=== PATIENT | male | born 1970 | race Asian ===

== ENCOUNTER 2018-09-07 12:22 | Emergency (ER) | payer OTHER | END 2018-09-07 14:15 | disposition home or self-care (01) | LOC: FTE 12:22 | DX: K04.7 Periapical abscess without sinus (principal) | CPT/HCPCS: 99283; Z7502 ==

== ENCOUNTER 2019-04-24 07:50 | Day surgery (SDC) | payer OTHER ==
[2019-04-24 09:13] LABS: ADD MAN DIFF? NO
[2019-04-24 09:18] LABS: WHITE BLOOD COUNT 9.7 10^3/ul (4.8-10.8)
[2019-04-24 09:18] LABS: BASOPHIL # 0.1 10^3/ul (0.0-0.1); BASOPHILS % 0.7 % (0.0-2.0); EOSINOPHILS # 0.7 10^3/ul (0.0-0.5); HEMATOCRIT 43.8 % (42.0-52.0); HEMOGLOBIN 14.3 g/dl (14.0-18.0); LYMPHOCYTES # 3.6 10^3/ul (0.8-2.9); LYMPHOCYTES % 37.2 % (15.0-51.0); MEAN CORPUSCULAR HEMOGLOBIN 27.2 pg (29.0-33.0); MEAN CORPUSCULAR HGB CONC 32.6 g/dl (32.0-37.0); MEAN CORPUSCULAR VOLUME 83.4 fl (82.0-101.0); MEAN PLATELET VOLUME 9.5 fl (7.4-10.4); MONOCYTE # 0.8 10^3/ul (0.3-0.9); MONOCYTES % 8.6 % (0.0-11.0); NEUTROPHIL # 4.5 10^3/ul (1.6-7.5); NEUTROPHILS % 46.3 % (39.0-77.0); PLATELET COUNT 291 10^3/UL (140-415); RED BLOOD COUNT 5.25 10^6/ul (4.70-6.10); RED CELL DISTRIBUTION WIDTH 14.3 % (11.5-14.5)
[2019-04-24 09:37] LABS: INR 1.04; PROTIME 13.7 Sec (11.9-14.9); PT RATIO 1.1
[2019-04-24 09:41] LABS: ALANINE AMINOTRANSFERASE 24 IU/L (13-69); ALBUMIN 4.1 g/dl (3.3-4.9); ALBUMIN/GLOBULIN RATIO 1.32; ALKALINE PHOSPHATASE 56 IU/L (42-121); ANION GAP 7 (5-13); ASPARTATE AMINO TRANSFERASE 35 IU/L (15-46); BILIRUBIN,INDIRECT 0.4 mg/dl (0-1.1); BILIRUBIN,TOTAL 0.4 mg/dl (0.2-1.3); BLOOD UREA NITROGEN 19 mg/dl (7-20); CALCIUM 9.3 mg/dl (8.4-10.2); CARBON DIOXIDE 27 mmol/L (21-31); CHLORIDE 110 mmol/L (97-110); CREATININE 1.02 mg/dl (0.61-1.24); Estimated GFR > 60 mL/min (>60); GLUCOSE 105 mg/dl (70-220); POTASSIUM 4.5 mmol/L (3.5-5.1); SODIUM 144 mmol/L (135-144); TOTAL PROTEIN 7.2 g/dl (6.1-8.1)
[2019-04-24 09:43] LABS: PARTIAL THROMBOPLASTIN TIME 35.4 Sec (23.0-35.0)
[2019-04-24] MEDS ORDERED: FENTAnyl 50 MCG/ML VIAL IV ×2 (10:00)
[2019-04-24] MEDS ORDERED: METOCLOPRAMIDE 10 MG INJ IV (10:00)
[2019-04-24] MEDS ORDERED: ONDANSETRON 4 MG INJ IV (10:00)
[2019-04-24] MEDS ORDERED: EPHEDrine 25 MG/5 ML SYG IV (10:00)
[2019-04-24] MEDS ORDERED: HYDROmorphONE 1 MG/5 ML IV SYRINGE IV (10:00)
[2019-04-24] MEDS ORDERED: OXYCODONE/ACETAMINOPHEN (5/325) TAB PO (10:00)
[2019-04-24] MEDS ORDERED: MIDAZOLAM 1 MG/ML 2 ML INJ (10:04)
[2019-04-24] MEDS ORDERED: CEFAZOLIN 1 GM INJ (10:04)
[2019-04-24] MEDS ORDERED: FENTAnyl 50 MCG/ML VIAL (10:04)
[2019-04-24] MEDS ORDERED: ROPIVACAINE 0.2% 20 ML VIAL (10:04)
[2019-04-24] MEDS ORDERED: ROCURONIUM 50 MG INJ (10:04)
[2019-04-24] MEDS ORDERED: PROPOFOL 20 ML (10:04)
[2019-04-24] MEDS ORDERED: ONDANSETRON 4 MG INJ (11:20)
[2019-04-24] MEDS ORDERED: KETOROLAC 30 MG INJ (11:20)
[2019-04-24] MEDS ORDERED: DEXAMETHASONE 4 MG/ML 5 ML INJ (11:20)
[2019-04-24] MEDS ORDERED: METOCLOPRAMIDE 10 MG INJ (11:20)
[2019-04-24] MEDS ORDERED: NEOSTIGMINE 3 MG/3 ML SYRINGE (11:21)
[2019-04-24] MEDS ORDERED: GLYCOPYRROLATE 0.4 MG INJ (11:21)
[2019-04-24] MEDS: HYDROmorphONE 1 MG/5 ML IV SYRINGE IV (12:06)
[2019-04-24] MEDS: HYDROCODONE/APAP (5/325) TAB PO (12:06)
[2019-04-24] MEDS ORDERED: CEFAZOLIN 2 GM/50 ML (PMX) 50 ML IVPB (15:30)
== END 2019-04-24 13:00 | disposition home or self-care (01) ==
LOC: SDS 07:50
DX: K40.30 Unilateral inguinal hernia, with obstruction, without gangrene, not specified as recurrent (principal)
CPT/HCPCS: 49507; 80053; 85025; 85610; 85730